=== PATIENT | male | born 1965 | race Caucasian/White ===

== ENCOUNTER → 2020-02-10 | Outpatient (CLI) | payer BC ==
[~2020-02-10] MED LIST: PERCOCET 325 MG1 TA2 PO
== END ==
LOC: COL.RAD 09:59
DX: M25.512 Pain in left shoulder (principal)
CPT/HCPCS: J3301; Q9967

== ENCOUNTER → 2020-06-19 | Outpatient (CLI) | payer BC ==
[~2020-06-19] VITALS: Ht 182.9 cm; Wt 99.6 kg
[~2020-06-19] MED LIST changes: +ZESTRIL 20MG TA20 MG PO
[2020-06-19 12:02] VITALS: PULSE 73
[2020-06-19 12:06] VITALS: BP 111/89; PULSE 73
[2020-06-19 13:25] VITALS: BP 119/73; PULSE 60
== END ==
LOC: COL.RAD 11:36
DX: M51.36 Other intervertebral disc degeneration, lumbar region (principal); M25.512 Pain in left shoulder; G89.29 Other chronic pain
CPT/HCPCS: J3301